=== PATIENT | male | born 1965 | race Caucasian/White ===

== ENCOUNTER → 2016-04-16 | Outpatient (CLI) | payer BC ==
[2016-04-16 13:57] LABS: BASOPHILS # (AUTO) 0.05 10*3/UL; BASOPHILS % (AUTO) 0.7 % (0-1); HEMATOCRIT 56.1 % (42.0-52.0); HEMOGLOBIN 19.1 g/dL (14.0-18.0); IMM GRAN % (AUTO) 0.8 % (0-5); IMM GRAN# (AUTO) 0.06 10*3/UL; LYMPHOCYTES # (AUTO) 0.83 10*3/uL; LYMPHOCYTES % (AUTO) 10.8 % (10-50); MEAN CORPUSCULAR HEMOGLOBIN 31.4 PG (27-31); MEAN PLATELET VOLUME 10.5 FL (7.4-12.2); MONOCYTES # (AUTO) 0.68 10*3/UL (0.3-0.8); MONOCYTES % (AUTO) 8.9 % (5-15); NEUTROPHILS # (AUTO) 5.97 10*3/UL; NEUTROPHILS % (AUTO) 77.8 % (50-80); RDW COEFFICIENT OF VARIATION 16.1 % (11.5-14.5); RED BLOOD COUNT 6.08 10^6/uL (4.70-6.10); WHITE BLOOD COUNT 7.67 10^3/uL (4.8-10.8)
[2016-04-16 14:01] LABS: PLATELET MORPHOLOGY COMMENT NORMAL MORPHOLOGY (NORM)
== END ==
LOC: LAB 13:48
PROVIDERS: ATTEND Internal Medicine
DX: D75.1 Secondary polycythemia (principal)
CPT/HCPCS: 85025; 99195